=== PATIENT | female | born 1960 | race Caucasian/White ===

== ENCOUNTER 2020-04-13 11:20 | Emergency (ER) | payer OTHER, SELFPAY ==
[~2020-04-13] VITALS: Ht 152.4 cm; Wt 127.0 kg
[2020-04-13 11:31] VITALS: BP 100/61
--- NOTE | 2020-04-13 11:45 | NUR ---
Pt c/o dysuria, urinary frequency/urgency/burning sensation, and hematuria x 10 days. HR EVEN AND REGULAR; PT DENIES ANY FEVER, CP, SOB, OR COUGH AT THIS TIME; PATIENT STATES PAIN OF 0/10 AT THIS TIME; VSS; PATIENT POSITIONED FOR COMFORT; HOB ELEVATED; BEDRAILS UP X2; BED DOWN. ER MD MADE AWARE OF PT STATUS. PT REPORTS HAD COVID-19 IN THE BEGINNING OF FEB AND NEVER GOTTEN RETESTED. medhx: DM, covid-19
[2020-04-13] MEDS ORDERED: PHENAZOPYRIDINE 100 MG TAB PO ONE (12:25)
[2020-04-13] MEDS ORDERED: cefTRIAXone 1,000 MG in LIDOCAINE MPF 1% 2.1 ML IM ONE (12:25)
[2020-04-13] MEDS ORDERED: cefTRIAXone 1,000 MG VIAL ONE (12:27)
[2020-04-13] MEDS ORDERED: LIDOCAINE MPF 1% 5 ML ONE (12:28)
[2020-04-13 13:03] LABS: BASOPHILS # (AUTO) 0.1 K/uL (0.00-0.22); EOSINOPHILS # (AUTO) 0.1 K/uL (0-0.4); EOSINOPHILS % (AUTO) 1.8 % (0.0-4.0); HEMATOCRIT 38.4 % (36-48); HEMOGLOBIN 12.9 g/dL (12.0-16.0); LYMPHOCYTES % (AUTO) 30.8 % (20.5-51.1); MEAN CORPUSCULAR HEMOGLOBIN 28 pg (27-31); MEAN CORPUSCULAR HGB CONC 34 g/dL (33-37); MEAN CORPUSCULAR VOLUME 84.3 fL (80-94); MONOCYTES # (AUTO) 0.4 K/uL (0.8-1.0); MONOCYTES % (AUTO) 5.5 % (1.7-9.3); NEUTROPHILS % (AUTO) 60.9 % (42.2-75.2); PLATELET COUNT (AUTO) 237 K/uL (140-450); RED BLOOD CELL COUNT(AUTO) 4.56 MIL/uL (4.20-5.40); WHITE BLOOD COUNT (AUTO) 6.6 K/uL (4.8-10.8)
[2020-04-13 13:37] LABS: ANION GAP 13.6 (8-16); CARBON DIOXIDE 26.4 mmol/L (21-32); CREATININE 0.7 mg/dL (0.6-1.3)
[2020-04-13 13:55] LABS: APPEARANCE,URINE CLEAR (CLEAR); BILIRUBIN,URINE NEGATIVE (NEGATIVE); BLOOD, URINE TRACE-I (NEGATIVE); COLOR,URINE YELLOW (YELLOW); LEUKOCYTE ESTERASE ,URINE 1+ (NEGATIVE); NITRITE, URINE NEGATIVE (NEGATIVE); PH,URINE 5.5 (5.0-9.0); UGLUCOSE NEGATIVE (NEGATIVE)
[2020-04-13 14:14] LABS: WBC,URINE 16-25 (MOD) /HPF (0-5)
[2020-04-13 15:25] VITALS: BP 107/60
--- NOTE | 2020-04-13 15:25 | NUR ---
Patient discharged with v/s stable. Written and verbal after care instructions given and explained. Patient alert, oriented and verbalized understanding of instructions. Ambulatory with steady gait. All questions addressed prior to discharge. ID band removed. Patient advised to follow up with PMD. Rx of Pyridium and keflex given. Patient educated on indication of medication including possible reaction and side effects. Opportunity to ask questions provided and answered.
== END 2020-04-13 15:25 | disposition home or self-care (01) ==
LOC: MED 11:20
DX: N39.0 Urinary tract infection, site not specified (principal)
CPT/HCPCS: 36415; 80048; 81001; 81025; 82948; 85025; 87086; 96372; 99283; J0696; J2001; 81002